=== PATIENT | female | born 1970 | race Caucasian/White ===

== ENCOUNTER → 2020-05-13 | Outpatient (CLI) | payer OTHER | END | disposition home or self-care (01) | LOC: RAD 12:47 | PROVIDERS: ATTEND Clinical Nurse Specialist | DX: R11.10 Vomiting, unspecified (principal) | CPT/HCPCS: 74240 ==

== ENCOUNTER 2020-09-18 07:30 | Inpatient (IN) | payer OTHER ==
[~2020-09-18] VITALS: Ht 162.6 cm; Wt 150.0 kg
[2020-10-18] MEDS ORDERED: LORA-445 PO (10:30)
[2020-10-18] MEDS ORDERED: HYDR-3245 PO (10:30)
[2020-10-18] MEDS ORDERED: IBUP200T49 PO (10:30)
[2020-10-18] MEDS ORDERED: SERT100T PO (10:30)
[2020-10-23] MEDS ORDERED: BUPIVACAINE/PF 0.5% ONE (07:06)
[2020-10-23] MEDS ORDERED: EPINEPHRINE 1 MG/ML, 1ML ONE (07:07)
[2020-10-23] MEDS ORDERED: FENTANYL PF 250 MCG/5ML ONE ×2 (07:44→09:14)
[2020-10-23] MEDS ORDERED: MIDAZOLAM 1 MG/ML, 2ML ONE (07:44)
[2020-10-23] MEDS ORDERED: PROPOFOL 10 MG/ML, 20ML ONE (07:48)
[2020-10-23] MEDS ORDERED: GLYCOPYRROLATE 0.2MG/1ML, 5ML ONE (07:48)
[2020-10-23] MEDS ORDERED: ONDANSETRON 2MG/ML, 2ML ONE (07:48)
[2020-10-23] MEDS ORDERED: CEFAZOLIN 1,000 MG ONE (07:48)
[2020-10-23] MEDS ORDERED: NEOSTIGMINE 1 MG/ML, 10ML ONE (07:48)
[2020-10-23] MEDS ORDERED: ROCURONIUM 10MG/ML,5ML ONE (07:48)
[2020-10-23 07:53] VITALS: BP 156/93
[2020-10-23 07:55] LABS: HCG UR SG 1.017 (1.003-1.030)
[2020-10-23] MEDS ORDERED: CHLORHEXIDINE 15 ML UDC ONE (07:56)
[2020-10-23] MEDS ORDERED: CHLORHEXIDINE 15 ML UDC MM ONE (08:00)
[2020-10-23] MEDS ORDERED: LACTATED RINGERS 1,000 ML IV SCH ×2 (08:00→23:30)
[2020-10-23] MEDS ORDERED: DEXAMETHASONE 4 MG/ML, 1ML ONE (08:46)
[2020-10-23] MEDS ORDERED: MEPERIDINE/PF 25MG/0.5ML IVPush PRN (09:00)
[2020-10-23] MEDS ORDERED: PROMETHAZINE 25 MG/ML, 1ML IVPush PRN (09:00)
[2020-10-23] MEDS ORDERED: ACETAMINOPHEN 325 MG TABLET PO PRN (09:00)
[2020-10-23] MEDS ORDERED: FENTANYL PF 100 MCG/2ML IV PRN (09:00)
[2020-10-23] MEDS ORDERED: HALOPERIDOL 5 MG/ML IV PRN (09:00)
[2020-10-23] MEDS ORDERED: OXYcodone 5 MG/5 ML ORAL.SOL UDC PO PRN (09:00)
[2020-10-23] MEDS ORDERED: morphine SULFATE 10 MG/ML, 1ML IVPush PRN ×2 (09:00→10:30)
[2020-10-23] MEDS ORDERED: BUPIVACAINE/PF-EPI 0.5% 1:200K INFIL ONE (09:03)
[2020-10-23] MEDS ORDERED: FENTANYL PF 100 MCG/2ML ONE ×3 (09:39→09:54)
[2020-10-23] MEDS ORDERED: METOPROLOL 1 MG/ML, 5ML ONE (09:43)
[2020-10-23] MEDS ORDERED: HYDROmorphone 2 MG/ML, 1ML ONE (10:28)
[2020-10-23] MEDS ORDERED: OXYcodone 5 MG/5 ML ORAL.SOL UDC ONE (10:28)
[2020-10-23] MEDS ORDERED: PHENOL THROAT SPRAY BOTTLE MM PRN (10:30)
[2020-10-23] MEDS ORDERED: DIPHENHYDRAMINE 50 MG/ML, 1ML IV PRN (10:30)
[2020-10-23] MEDS ORDERED: hydrALAzine 20 MG/ML, 1ML IVPush PRN (10:30)
[2020-10-23] MEDS ORDERED: ENALAPRILAT 1.25 MG/ML, 2ML IV PRN (10:30)
[2020-10-23] MEDS ORDERED: LORazepam 2 MG/ML, 1ML IV PRN (10:30)
[2020-10-23] MEDS ORDERED: METHOCARBAMOL 1,000 MG in DEXTROSE 5% 100 ML IV ONE (10:30)
[2020-10-23] MEDS ORDERED: PROMETHAZINE 12.5 MG SUPP PR PRN (10:30)
[2020-10-23] MEDS ORDERED: PROMETHAZINE 25 MG/ML, 1ML IM PRN (10:30)
[2020-10-23] MEDS: HYDROmorphone 1 MG/ML, 1ML INJ IVPush PRN ×4 (10:30→11:30)
[2020-10-23] MEDS ORDERED: hydrALAzine 20 MG/ML, 1ML ONE (10:34)
[2020-10-23] MEDS ORDERED: LABETALOL 5MG/ML, 20ML ONE (10:34)
[2020-10-23] MEDS: LABETALOL 5MG/ML, 20ML IV PRN ×4 (10:35→11:05)
[2020-10-23] MEDS: hydrALAzine 20 MG/ML, 1ML IV PRN ×2 (10:40→11:00)
[2020-10-23] MEDS: FAMOTIDINE 20 MG/2 ML IVPush SCH ×2 (15:23→18:54)
[2020-10-23] MEDS: LACTATED RINGERS 1,000 ML IV SCH ×2 (15:23→22:02)
[2020-10-23 19:00] VITALS: BP 147/80
[2020-10-23] MEDS: ONDANSETRON 2MG/ML, 2ML IVPush PRN (20:57)
[2020-10-23] MEDS: HYDROcodone/APAP 7.5-325MG/15ML UDC PO PRN ×3 (20:58→22:05)
[2020-10-24 00:15] VITALS: BP 129/82
[2020-10-24] MEDS: ONDANSETRON 2MG/ML, 2ML IVPush PRN (02:37)
[2020-10-24] MEDS: HYDROcodone/APAP 7.5-325MG/15ML UDC PO PRN ×2 (02:41→08:42)
[2020-10-24 04:03] VITALS: BP 117/70
[2020-10-24 08:36] VITALS: BP 126/75
[2020-10-24] MEDS: FAMOTIDINE 20 MG/2 ML IVPush SCH (08:42)
[2020-10-24] MEDS ORDERED: ENOXAPARIN 40 MG/0.4 ML SQ SCH (09:00)
[2020-10-24] MEDS ORDERED: KETOROLAC 30 MG/1 ML IVPush PRN (10:30)
[2020-10-24 13:40] VITALS: BP 123/80
== END 2020-10-24 16:00 | disposition home or self-care (01) | DRG 331 ==
LOC: ORIP 10-23 05:57 → 4NE 10-23 13:45 → DCLOUNGE 10-24 15:56
PROVIDERS: ADMIT Thoracic Surgery (Cardiothoracic Vascular Surgery); ATTEND Thoracic Surgery (Cardiothoracic Vascular Surgery)
PROC: 0DB84ZZ Excision of Small Intestine, Percutaneous Endoscopic Approach (ICD-10-PCS; principal; 2020-10-23 08:30)
DX: K91.89 Other postprocedural complications and disorders of digestive system (principal); K63.89 Other specified diseases of intestine; K66.0 Peritoneal adhesions (postprocedural) (postinfection); R13.10 Dysphagia, unspecified; Z98.84 Bariatric surgery status; Z88.0 Allergy status to penicillin; Z88.2 Allergy status to sulfonamides; Z91.040 Latex allergy status; Y83.8 Other surgical procedures as the cause of abnormal reaction of the patient, or of later complication, without mention of misadventure at the time of the procedure
CPT/HCPCS: 36415; S0020; 81025; 86850; 86900; G0378; J0171; J0690; J1100; J1170; J1650; J1885; J2250; J2405; J2704; J2710; J3010; J0360; J2270; J2800; J7120

== ENCOUNTER 2020-10-18 09:54 | Outpatient (CLI) | payer OTHER ==
[2020-10-18] MEDS ORDERED: HYDR-3245 PO (10:30)
[2020-10-18] MEDS ORDERED: IBUP200T49 PO (10:30)
[2020-10-18] MEDS ORDERED: LORA-445 PO (10:30)
[2020-10-18] MEDS ORDERED: SERT100T PO (10:30)
[2020-10-18 10:56] LABS: BASOPHILS % (AUTO) 1 % (0-1); EOSINOPHILS % (AUTO) 1 % (1-7); LYMPHOCYTES % (AUTO) 27 % (22-44); MEAN CORPUSCULAR HEMOGLOBIN 26.9 pg (27.0-34.8); MEAN CORPUSCULAR HGB CONC 32.4 g/dL (32.4-35.8); MEAN PLATELET VOLUME 8.1 fL (7.4-10.4); MONOCYTES % (AUTO) 8 % (2-9); NEUTROPHILS % (AUTO) 64 % (42-75); PLATELET COUNT 224 x10^3/uL (130-400); RED BLOOD COUNT 4.31 x10^6/uL (3.82-5.3); RED CELL DISTRIBUTION WIDTH 15.8 % (9.6-15.2)
[2020-10-18 10:58] LABS: MD NO
[2020-10-18 11:08] LABS: ALBUMIN 3.7 g/dL (3.4-5.0); ANION GAP 4 mmol/L (5-15); CALCIUM 8.9 mg/dL (8.5-10.1); CHLORIDE 107 mmol/L (98-107)
[2020-10-18 11:12] LABS: ALANINE AMINOTRANSFERASE 32 U/L (12-78); ALKALINE PHOSPHATASE 82 U/L (45-117); BILIRUBIN,TOTAL 0.5 mg/dL (0.2-1.0); CREATININE 0.87 mg/dL (0.55-1.02); TOTAL PROTEIN 7.1 g/dL (6.4-8.2)
== END 2020-10-18 23:59 | disposition home or self-care (01) ==
LOC: STAR 09:54
PROVIDERS: ATTEND Thoracic Surgery (Cardiothoracic Vascular Surgery)
DX: Z01.812 Encounter for preprocedural laboratory examination (principal); Z20.828 Contact with and (suspected) exposure to other viral communicable diseases
CPT/HCPCS: 80053; 85025; 87635; 93005

== ENCOUNTER 2020-12-18 10:11 | Outpatient (CLI) | payer OTHER ==
[~2020-12-18 10:11] MED LIST: HYDR1TAB53 PO; IBUP200T49 PO; LORA-445 PO; SERT100T PO
== END 2020-12-18 23:59 | disposition home or self-care (01) ==
LOC: CFH 10:11
PROVIDERS: ATTEND Physician Assistant
DX: Z02.9 Encounter for administrative examinations, unspecified (principal)

== ENCOUNTER → 2021-03-06 | Outpatient (CLI) | payer OTHER | END | disposition home or self-care (01) | LOC: CFH 13:24 → EDSTATUS 15:15 | PROVIDERS: ATTEND Family Medicine | DX: Z01.818 Encounter for other preprocedural examination (principal); M47.816 Spondylosis without myelopathy or radiculopathy, lumbar region; M51.37 Other intervertebral disc degeneration, lumbosacral region; M48.07 Spinal stenosis, lumbosacral region; M43.18 Spondylolisthesis, sacral and sacrococcygeal region | CPT/HCPCS: 72131 ==